=== PATIENT | male | born 1985 | race Caucasian/White ===

== ENCOUNTER 2018-09-12 08:08 | Emergency (ER) | payer BC, OTHER ==
[~2018-09-12] VITALS: Ht 180.3 cm; Wt 88.5 kg
--- OUTSIDE RECORDS SUMMARY | 2018-09-12 08:13 | XMS REPORT | Continuity of Care Document ---
Author Author [facility] Organization [facility] Address Unknown Phone Unavailable Allergies There is no data. Medications There is no data. Problems Date Dx Coded Attending Type Code Diagnosis Diagnosed By 10/24/2015 ANEUDY SANTO MD Ot N46.9 11/08/2015 ANEUDY SANTO MD, Ot N46.9 Procedures There is no data. Results There is no data. Encounters ACCT No. Visit Date/Time Discharge Status Pt. Type Provider Facility Loc./Unit Complaint [id number] 10/08/2015 15:49:00 10/08/2015 23:59:59 CLS Outpatient ANEUDY SANTO MD [facility] LAB
[2018-09-12] MEDS ORDERED: NS IV 1000 ML 1,000 ML IV STA (08:27)
[2018-09-12] MEDS ORDERED: KETOROLAC 30 MG/ML VIAL IVP STA (08:27)
[2018-09-12] MEDS ORDERED: ONDANSETRON 4 MG/2 ML (SDV) Z0FRAN IVP ONE (08:30)
[2018-09-12 08:51] LABS: BASOPHILS % (AUTO) 0 % (0-10); EOSINOPHILS # (AUTO) 0.2 10^3/uL (0.0-0.3); EOSINOPHILS % (AUTO) 2 % (0-10); HEMATOCRIT 46 % (40-54); HEMOGLOBIN 15.9 G/DL (13.3-17.7); LYMPHOCYTES % (AUTO) 25 % (12-44); MEAN CORPUSCULAR HEMOGLOBIN 30 PG (25-34); MEAN CORPUSCULAR HGB CONC 34 G/DL (32-36); MEAN CORPUSCULAR VOLUME 87 FL (80-99); MEAN PLATELET VOLUME 10.4 FL (7.4-10.4); MONOCYTES # (AUTO) 1.1 X 10^3 (0.0-1.0); MONOCYTES % (AUTO) 9 % (0-12); NEUTROPHILS # (AUTO) 7.9 X 10^3 (1.8-7.8); NEUTROPHILS % (AUTO) 65 % (42-75); PLATELET COUNT 265 10^3/uL (130-400); RED BLOOD COUNT 5.34 10^6/uL (4.35-5.85); RED CELL DISTRIBUTION WIDTH 13.8 % (10.0-14.5); WHITE BLOOD COUNT 12.1 10^3/uL (4.3-11.0)
[2018-09-12 09:08] LABS: ALANINE AMINOTRANSFERASE 18 U/L (0-55); ALBUMIN 4.4 GM/DL (3.2-4.5); ALKALINE PHOSPHATASE 98 U/L (40-136); BILIRUBIN,TOTAL 0.5 MG/DL (0.1-1.0); BUN/CREATININE RATIO 10; CALCIUM 9.6 MG/DL (8.5-10.1); CARBON DIOXIDE 26 MMOL/L (21-32); CHLORIDE 103 MMOL/L (98-107); CREATININE SERUM 1.05 MG/DL (0.60-1.30); GFR ESTIMATED > 60; GLUCOSE 90 MG/DL (70-105); LIPASE 79 U/L (8-78); POTASSIUM 4.1 MMOL/L (3.6-5.0); SODIUM 140 MMOL/L (135-145); TOTAL PROTEIN 6.8 GM/DL (6.4-8.2)
--- NOTE | 2018-09-12 09:48 | ED General ---
General Chief Complaint: Abdominal/GI Problems Stated Complaint: ABD PAIN Nursing Triage Note: Pt ambulated to rm 10 w/o difficulty. Pt reports abdominal pain that began on . Pt reports N/V on , but only nausea since. Pt reprots "soft stool" which is not pt's normal. Pt reports abdominal pain that radiates to R flank area. Pt reports hx of kidney stone. Pt also concerned about upper respiratory issues, reporting coughing, wheezing, sinuse drainage and pressure. Pt also concerned about salmonella as pt reports being exposed to raw chicken meal at the [employer]. Nursing Sepsis Screen: No Definite Risk Source of Information: Patient Exam Limitations: No Limitations History of Present Illness Date Seen by Provider: Sep 12, 2018 Time Seen by Provider: 08:35 Initial Comments Here with complaint of upper abdominal pain and nausea for the last few days. Did have vomiting 2-3 days ago but none since. Pain does radiate to the right flank. Has had upper respiratory problems including cough and runny nose as well as some sore throat. That has been going on since last Thursday. Fevers as well. No diarrhea. Has had some loose stools but not watery. No blood in the stools. Timing/Duration: 1 Week, Getting Worse Severity: Moderate Associated Systoms: No Chest Pain; Cough, Fever/Chills, Nausea/Vomiting; No Shortness of Air, No Weakness Allergies and Home Medications Allergies Coded Allergies: No Known Drug Allergies (Unverified , 09/12/18) Patient Home Medication List Home Medication List Reviewed: Yes Review of Systems Review of Systems Constitutional: see HPI; No chills; fever EENTM: nose congestion; No ear pain Respiratory: cough, short of breath Cardiovascular: No chest pain, No edema Gastrointestinal: abdominal pain (RUQ and epigastric); No nausea, No vomiting Genitourinary: no symptoms reported Musculoskeletal: no symptoms reported Skin: no symptoms reported Psychiatric/Neurological: No Symptoms Reported Past Oceslwa-Mfqayk-Ponfbk Hx Past Med/Social Hx: Reviewed Nursing Past Med/Soc Hx Patient Social History Alcohol Use: Denies Use Recreational Drug Use: No Smoking Status: Current Everyday Smoker Recent Foreign Travel: No Contact w/Someone Who Travel: No Recent Infectious Disease Expo: No Past Medical History Surgeries: No Respiratory: No Cardiac: No Neurological: No Gastrointestinal: No Musculoskeletal: No Endocrine: No HEENT: No Family Medical History Reviewed Nursing Family Hx Physical Exam Vital Signs Vital Signs - First Documented 09/12/18 08:15 Temp 99.3 Pulse 73 Resp 18 B/P (MAP) 136/91 (106) Pulse Ox 97 O2 Delivery Room Air Capillary Refill : Less Than 3 Seconds Height, Weight, BMI Height: 5'11.00" Weight: 195lbs. oz. 88.375216ap; BMI Method:Stated General Appearance: No Apparent Distress, WD/WN HEENT: PERRL/EOMI, Pharyngeal Erythema; No Tonsillar Exudate Neck: Non Tender, Supple Respiratory: No Accessory Muscle Use, No Respiratory Distress, Wheezing (few scattered trace wheezes with deep breath) Cardiovascular: Regular Rate, Rhythm, No Murmur Gastrointestinal: Non Tender, Soft Back: Normal Inspection, No CVA Tenderness, No Vertebral Tenderness Extremity: Normal Inspection, Normal Range of Motion Neurologic/Psychiatric: Alert, Oriented x3 Skin: Normal Color, Warm/Dry Progress/Results/Core Measures Suspected Sepsis Recent Fever Within 48 Hours: Yes Infection Criteria Present: None New/Unexplained Altered Menta: No Sepsis Screen: No Definite Risk SIRS Temperature:99.3 Pulse: 73 Respiratory Rate: 18 Laboratory Tests 09/12/18 08:40: White Blood Count 12.1H Blood Pressure 136 /91 Mean: 106 Laboratory Tests 09/12/18 08:40: Creatinine 1.05, Platelet Count 265, Total Bilirubin 0.5 Results/Orders Lab Results Laboratory Tests Test 09/12/18 08:40 09/12/18 09:15 Range/Units White Blood Count 12.1 H 4.3-11.0 10^3/uL Red Blood Count 5.34 4.35-5.85 10^6/uL Hemoglobin 15.9 13.3-17.7 G/DL Hematocrit 46 40-54 % Mean Corpuscular Volume 87 80-99 FL Mean Corpuscular Hemoglobin 30 25-34 PG Mean Corpuscular Hemoglobin Concent 34 32-36 G/DL Red Cell Distribution Width 13.8 10.0-14.5 % Platelet Count 265 130-400 10^3/uL Mean Platelet Volume 10.4 7.4-10.4 FL Neutrophils (%) (Auto) 65 42-75 % Lymphocytes (%) (Auto) 25 12-44 % Monocytes (%) (Auto) 9 0-12 % Eosinophils (%) (Auto) 2 0-10 % Basophils (%) (Auto) 0 0-10 % Neutrophils # (Auto) 7.9 H 1.8-7.8 X 10^3 Lymphocytes # (Auto) 3.0 1.0-4.0 X 10^3 Monocytes # (Auto) 1.1 H 0.0-1.0 X 10^3 Eosinophils # (Auto) 0.2 0.0-0.3 10^3/uL Basophils # (Auto) 0.0 0.0-0.1 10^3/uL Sodium Level 140 135-145 MMOL/L Potassium Level 4.1 3.6-5.0 MMOL/L Chloride Level 103 98-107 MMOL/L Carbon Dioxide Level 26 21-32 MMOL/L Anion Gap 11 5-14 MMOL/L Blood Urea Nitrogen 10 7-18 MG/DL Creatinine 1.05 0.60-1.30 MG/DL Estimat Glomerular Filtration Rate > 60 BUN/Creatinine Ratio 10 Glucose Level 90 70-105 MG/DL Calcium Level 9.6 8.5-10.1 MG/DL Corrected Calcium 9.3 8.5-10.1 MG/DL Total Bilirubin 0.5 0.1-1.0 MG/DL Aspartate Amino Transf (AST/SGOT) 23 5-34 U/L Alanine Aminotransferase (ALT/SGPT) 18 0-55 U/L Alkaline Phosphatase 98 40-136 U/L Total Protein 6.8 6.4-8.2 GM/DL Albumin 4.4 3.2-4.5 GM/DL Lipase 79 H 8-78 U/L Urine Color YELLOW Urine Clarity CLEAR Urine pH 8 5-9 Urine Specific [place] 1.010 L 1.016-1.022 Urine Protein NEGATIVE NEGATIVE Urine Glucose (UA) NEGATIVE NEGATIVE Urine Ketones NEGATIVE NEGATIVE Urine Nitrite NEGATIVE NEGATIVE Urine Bilirubin NEGATIVE NEGATIVE Urine Urobilinogen NORMAL NORMAL MG/DL Urine Leukocyte Esterase 1+ H NEGATIVE Urine RBC (Auto) NEGATIVE NEGATIVE Urine RBC NONE /HPF Urine WBC 2-5 /HPF Urine Squamous Epithelial Cells 0-2 /HPF Urine Crystals NONE /LPF Urine Amorphous Sediment MOD MAURICIO PHOSPHATE H /LPF Urine Bacteria TRACE /HPF Urine Casts NONE /LPF Urine Mucus NEGATIVE /LPF Urine Culture Indicated NO My Orders Orders - HERI MENDOZA MD Cbc With Automated Diff (09/12/18 08:27) Comprehensive Metabolic Panel (09/12/18 08:27) Lipase (09/12/18 08:27) Ua Culture If Indicated (09/12/18 08:27) Ondansetron Injection (Zofran Injectio (09/12/18 08:30) Ns Iv 1000 Ml (Sodium Chloride 0.9%) (09/12/18 08:27) Saline Lock/Iv-Start (09/12/18 08:27) Ketorolac Injection (Toradol Injection) (09/12/18 08:27) Chest Pa/Lat (2 View) (09/12/18 08:44) Rt Request For Service (09/12/18 10:02) Rx-Albuterol Inhaler (Rx-Proair) (09/12/18 10:15) Medications Given in ED Current Medications Medications Dose Ordered Sig/Ashlee Route Start Time Stop Time Status Last Admin Dose Admin Ondansetron HCl 4 mg ONCE ONCE IVP 09/12/18 08:30 09/12/18 08:31 DC 09/12/18 08:38 4 MG Vital Signs/I&O 09/12/18 08:15 Temp 99.3 Pulse 73 Resp 18 B/P (MAP) 136/91 (106) Pulse Ox 97 O2 Delivery Room Air Capillary Refill : Less Than 3 Seconds Blood Pressure Mean: 106 Progress Note : Progress Note Seen and evaluated. IV, labs, UA and chest x-ray ordered. Zofran 4 mg IV, Toradol 30 mg IV and normal saline 1 L bolus ordered. Monitor patient. 1005: Improved. Questionable infiltrates on x-ray. We will treat this outpatient. Albuterol MDI teaching given. Discharged home with return precautions. Patient and family verbalize understanding instructions and agreement with plan. Diagnostic Imaging Diagonstic Imaging: Xray Plain Films/CT/US/NM/MRI: chest Comments [facility] [address], [place] NAME: RY[facility] REC#: [id number] PT STATUS: REG ER : 1985 PHYSICIAN: HERI MENDOZA MD ADMIT DATE: 09/12/18/ER Draft Date of Exam:09/12/18 CHEST PA/LAT (2 VIEW) INDICATION: Cough x3 days. TECHNIQUE: Two view chest 9:58 AM CORRELATION STUDY: None FINDINGS: The heart size, mediastinal configuration and pulmonary vasculature are within normal limits. Suggestion of minimal perihilar infiltrates. Lung amato otherwise clear. No peripheral lobar consolidation. Visualized osseous structures are unremarkable. IMPRESSION: 1. Suggestion of minimal perihilar infiltrates. No peripheral consolidation. Dictated on workstation # [id number] Dict: 09/12/1842 Trans: 09/12/18 0947 [facility] [id number] Interpreted by: LI GRANDE DO Electronically signed by: Departure Impression Primary Impression: Pneumonia Qualified Codes: J18.9 - Pneumonia, unspecified organism Additional Impression: Bronchitis Disposition: HOME, SELF-CARE Condition: Improved Departure-Patient Inst. Decision time for Depature: 10:07 Referrals: NO,LOCAL PHYSICIAN (PCP/Family) Primary Care Physician Patient Instructions: Acute Bronchitis, Adult (DC), Community-Acquired Pneumonia, Adult (DC) Add. Discharge Instructions: All discharge instructions reviewed with patient and/or family. Voiced understanding. Take medications as directed. You may use the albuterol inhaler 2 puffs every 4 hours as needed for shortness of breath. Follow-up with your Dr. in a few days for recheck. Return for worse pain, fever, vomiting, weakness, breathing problems or other concerns as needed. You should consider stopping smoking. Scripts Cefdinir (Cefdinir) 300 Mg Capsule 300 MG PO BID, #20 CAP 0 Refills Prov: HERI MENDOZA MD 09/12/18 HERI MENDOZA MD Sep 12, 2018 09:48
[2018-09-12] MEDS ORDERED: CEFD300C3 PO (10:10)
[2018-09-12] MEDS ORDERED: RX-ALBUTEROL INHALER (PROAIR) 8 GM IH PRN (10:15)
[2018-09-12 10:23] VITALS: BP 135/92
[2018-09-12 11:05] LABS: BACTERIA,URINE NEGATIVE /HPF; BILIRUBIN,URINE NEGATIVE (NEGATIVE); CLARITY,URINE CLEAR; COLOR,URINE YELLOW; GLUCOSE, URINE (UA) NEGATIVE (NEGATIVE); KETONES,URINE NEGATIVE (NEGATIVE); LEUKOCYTE ESTERASE ,URINE 1+ (NEGATIVE); NITRITE,URINE NEGATIVE (NEGATIVE); PH,URINE 8 (5-9); PROTEIN,URINE NEGATIVE (NEGATIVE); SQUAMOUS EPITHELIAL CELL,UR RARE /HPF; UROBILINOGEN,URINE NORMAL (NORMAL); WBC,URINE RARE /HPF
== END 2018-09-12 10:23 | disposition home or self-care (01) ==
LOC: EDUNIT# 08:08 → ER 08:09
DX: J18.9 Pneumonia, unspecified organism (principal); J40 Bronchitis, not specified as acute or chronic; F17.200 Nicotine dependence, unspecified, uncomplicated
CPT/HCPCS: 36415; 71046; 80053; 81000; 83690; 85025; 94640; 94664